=== PATIENT | male | born 1995 | race Caucasian/White ===

== ENCOUNTER 2017-12-08 16:34 | Emergency (ER) | payer MEDICAID ==
[2017-12-08 19:17] LABS: ABS Basophils 0.1 10^3/ul (0-0.2); ABS Eosinophils 0.1 10^3/ul (0-0.6); ABS Lymphocytes 2.3 10^3/ul (1.0-4.8); ABS Monocytes 0.8 10^3/ul (0-0.8); ABS Neutrophils 4.4 10^3/ul (1.5-7.7); ABS Nucleated RBC 0 10^3/ul; Eosinophil % 1.3 % (0-6); Hematocrit 44 % (42-52); Lymphocyte % 30.6 % (25-47); Mean Corpuscular HGB Conc 34 g/dl (31-36); Mean Corpuscular Hemoglobin 30 pg (27-31); Mean Corpuscular Volume 89 fL (80-94); Nucleated Red Blood Cells % 0.1; Platelet Count 209 10^3/ul (150-450); Red Blood Count 4.94 10^6/ul (4.0-5.4); Red Cell Distribution Width 14 % (10.5-15); White Blood Count 7.7 10^3/ul (3.5-10.8)
[2017-12-08 19:33] LABS: EGFR Non-African American 71.6 (>60)
[2017-12-08 19:37] LABS: Urine Appearance Clear; Urine Blood Negative (Negative); Urine Color Straw; Urine Ketones Negative (Negative); Urine Protein Negative (Negative); Urine Specific Gravity 1.006 (1.010-1.030); Urine Urobilinogen Negative (Negative)
[2017-12-08 22:59] VITALS: BP 115/79
--- NOTE | 2017-12-10 18:29 | ED ---
Fest[address] Angela, scribed for Gregory Romo MD on 12/08/17 at 2259 . Progress - Progress Note Progress Note: This pt was signed out by Dr. Pantoja, pending disposition, awaiting EKG and MHE. EKG at 22:23 Rate: Normal at 63 bpm Rhythm: Sinus rhythm Normal intervals. No acute ST changes. Pt was evaluated by the mental health internet systems administrator and his case was reviewed by Dr. Mueller. Dr. Mueller recommends to discharge the pt and return to [facility] rehab. - Consult/PCP Time Called: 19:30 Course/Dx - Diagnoses Provider Diagnoses: Depression, Suicidal ideation Discharge - Sign-Out/Discharge Documenting (check all that apply): Discharge - discharge pt home, Receiving Sign-Out Receiving patient FROM: Duy Pantoja - Discharge Plan Condition: Stable Disposition: HOME Referrals: Mirza Galan MD [Primary Care Provider] - Additional Instructions: Per completion of a mental health evaluation, you are cleared for release and do not require inpatient psychiatric hospitalization at this time. Please go to nearest emergency room or call 911 if safety concerns arise or condition worsens. [facility]........[phone] Suicide Prevention and Crisis Services........................[phone] National Suicide Prevention Lifeline............................755-204-UWKM ( 2573) [facility].......................[phone] Alcoholics Anonymous...............................................[phone] [facility]..............[phone] [facility] Police..............................................[phone] The documentation as recorded by the Festus ashton Angela accurately reflects the service I personally performed and the decisions made by , Gregory Romo MD.
--- NOTE | 2017-12-16 23:12 | ED ---
Loni Lane Julia, scribed for Duy Pantoja on 12/08/17 at 1707 . Psychiatric Complaint - HPI Summary HPI Summary: This patient is a 22 year old M brought by police to [facility] with a chief complaint of increase SI and aggressive thoughts. He states that he woke up this morning and felt like fighting someone, without seriously injuring them. Patient reports he has not taken any of his regular psychiatric medications since he was released from half-way months ago. Patient recently joined [employer]. Patient has a hx of bipolar disorder, PTSD, borderline personality disorder, and schizophrenia. - History Of Current Complaint Chief Complaint: EDMentalHealth Time Seen by Provider: 12/08/17 16:43 Hx Obtained From: Patient Onset/Duration: Lasting Hours Character: Depressed, Angry Aggravating Factor(s): Medication Non-compliance Related History: Positive For: Prior Psychiatric Issues Has Suicidal: Reports: Thoughts. Denies: With A Plan Has Homicidal: Reports: Thoughts. Denies: With A Plan - Allergies/Home Medications Home Medications: Home Medications Divalproex ER TAB(*) [Depakote ER TAB(*)] 500 mg PO BID 12/08/17 [History Confirmed 12/08/17] OLANZapine [Zyprexa] 15 mg PO BEDTIME 12/08/17 [History Confirmed 12/08/17] Prazosin CAP* [Minipress CAP*] 2 mg PO BEDTIME 12/08/17 [History Confirmed 12/08] QUEtiapine TAB* [SEROquel TAB*] 200 mg PO BEDTIME 12/08/17 [History Confirmed ] Sertraline* [Zoloft*] 50 mg PO DAILY 12/08/17 [History Confirmed 12/08/17] traZODone TAB* [Desyrel TAB*] 100 mg PO BEDTIME 12/08/17 [History Confirmed ] PMH/Surg Hx/FS Hx/Imm Hx EENT History: Denies: Hx Deafness Psychiatric History: Reports: Hx Post Traumatic Stress Disorder, Hx Schizophrenia, Hx Bipolar Disorder, Hx Substance Abuse, Other Psychiatric Issues /Disorders - adjustment disorder - Social History Hx Substance Use: Yes Substance Use Type: Reports: Heroin Review of Systems Negative: Fever Positive: Depressed, Other - angry All Other Systems Reviewed And Are Negative: Yes Physical Exam - Summary Physical Exam Summary: Appearance: Well appearing, no pain distress Skin: warm, dry, reflects adequate perfusion Head/face: normal Eyes: EOMI, ESCOBAR ENT: normal Neck: supple, non-tender Respiratory: CTA, breath sounds present Cardiovascular: RRR, pulses symmetrical Abdomen: non-tender, soft Bowel: present Musculoskeletal: normal, strength/ROM intact Neuro: normal, sensory motor intact, A&Ox3 Psychological : Depressed Affect Triage Information Reviewed: Yes Vital Signs Reviewed: Yes Diagnostics - Laboratory Result Diagrams: 12/08/17 19:10 12/08/17 19:10 Lab Statement: Any lab studies that have been ordered have been reviewed, and results considered in the medical decision making process. Course/Dx - Course Course Of Treatment: Patient presents with increase SI and aggressive thoughts. Patient has a hx of bipolar disorder, PTSD, borderline personality disorder, and schizophrenia. Bloodwork is obtained and pt is cleared for mental health evaluation. Pt is signed out to Dr. Romo. - Differential Dx/Clinical Impression Provider Diagnosis: Depression, Suicidal ideation Discharge - Sign-Out/Discharge Documenting (check all that apply): Sign-Out Patient Signing out patient TO: Gregory Romo - pending dispo - Discharge Plan Referrals: Mirza Galan MD [Primary Care Provider] - Additional Instructions: Per completion of a mental health evaluation, you are cleared for release and do not require inpatient psychiatric hospitalization at this time. Please go to nearest emergency room or call 911 if safety concerns arise or condition worsens. [facility] Unit........[phone] Suicide Prevention and Crisis Services........................[phone] National Suicide Prevention Lifeline............................010-391-TABZ ( 5842) [facility].......................[phone] Alcoholics Anonymous...............................................[phone] [facility]..............[phone] [facility] Police..............................................[phone] The documentation as recorded by the Loni ashton Julia accurately reflects the service I personally performed and the decisions made by , Duy Pantoja.
== END 2017-12-08 22:57 | disposition home or self-care (01) ==
LOC: ED 16:34
DX: F32.9 Major depressive disorder, single episode, unspecified (principal); R45.851 Suicidal ideations
CPT/HCPCS: 36415; 80053; 80307; 80320; 80329; 81003; 84443; 85025; 93005; 99283; G0480